=== PATIENT | female | born 1980 | race Hispanic/Latino ===

== ENCOUNTER 2022-03-24 05:51 | Emergency (ER) | payer MEDICARE ==
[~2022-03-24] VITALS: Ht 149.9 cm; Wt 74.8 kg
[2022-03-24] MEDS ORDERED: ONDANSETRON ODT4 MG PO (06:40)
[2022-03-24] MEDS ORDERED: ZITHROMAX250 MG PO (06:40)
[2022-03-24] MEDS ORDERED: ONDANSETRON HCL 4 MG ORAL DISINTEGRATING TAB PO ONE (06:45)
[2022-03-24] MEDS ORDERED: ONDANSETRON HCL 4 MG ORAL DISINTEGRATING TAB ONE (06:49)
== END 2022-03-24 06:56 | disposition home or self-care (01) ==
LOC: FSED 06:00
DX: R05.9 Cough, unspecified (principal); J20.9 Acute bronchitis, unspecified; R11.2 Nausea with vomiting, unspecified; R19.7 Diarrhea, unspecified
CPT/HCPCS: 87400; 99283; Q0162